=== PATIENT | male | born 1975 | race Asian ===

== ENCOUNTER 2021-04-21 07:42 | Day surgery (SDC) | payer OTHER ==
[2021-04-21 09:00] VITALS: BP 142/88
[2021-04-21 09:17] LABS: HEMATOCRIT 43.9 % (39.0-50.0); HEMOGLOBIN 14.6 g/dl (14.0-18.0); MEAN CELL VOLUME 84.6 fL CALC (80.0-100.0); MEAN CORPUSCULAR HGB 28.1 pG CALC (26.0-32.0); MEAN CORPUSCULAR HGB CONC 33.3 g/dL CAL (32.0-36.0); NEUT# 3.24 thou/uL (1.82-7.42); RED BLOOD COUNT 5.19 mill/uL (4.70-6.10); RED CELL DISTRI WIDTH 11.8 % (11.5-15.5)
[2021-04-21 09:30] LABS: ANION GAP 11 (6-22 (CALC)); BUN 15 mg/dL (9-20); BUN/CREATININE RATIO 18 (12-20 (CALC)); CARBON DIOXIDE 36 mmol/l (22-30); CHLORIDE 95 mmol/l (95-108); CREATININE 0.9 mg/dL (0.7-1.3); GFR > 60 ML/MIN (>=60 (CALC)); GFR FOR AFR.AMER. > 60 ML/MIN (>=60 (CALC)); SODIUM 137 mmol/l (137-146)
[2021-04-21 09:33] LABS: POTASSIUM 5.2 mmol/l (3.5-5.1)
[2021-04-21 09:35] VITALS: BP 100/63
[2021-04-21 10:38] LABS: ALBUMIN 4.4 g/dL (3.2-5.0); BILIRUBIN, TOTAL 0.4 mg/dL (0.0-1.4); TOTAL PROTEIN 7.2 g/dL (6.3-8.2)
[2021-04-21 11:08] VITALS: BP 85/39
[2021-04-21 20:26] VITALS: BP 115/70
[2021-04-21 22:54] VITALS: BP 141/87
[2021-04-22 04:16] VITALS: BP 120/74
[2021-04-22 04:20] VITALS: BP 120/74
[2021-04-22 05:34] LABS: ANION GAP 13 (6-22 (CALC)); BUN 14 mg/dL (9-20); BUN/CREATININE RATIO 19 (12-20 (CALC)); CHLORIDE 102 mmol/l (95-108); CREATININE 0.7 mg/dL (0.7-1.3); GFR > 60 ML/MIN (>=60 (CALC)); GFR FOR AFR.AMER. > 60 ML/MIN (>=60 (CALC)); POTASSIUM 4.3 mmol/l (3.5-5.1); SODIUM 135 mmol/l (137-146)
[2021-04-22 05:42] LABS: CARBON DIOXIDE 24 mmol/l (22-30)
[2021-04-22 07:41] VITALS: BP 118/71
[2021-04-22 11:46] VITALS: BP 117/70
== END 2021-04-22 15:15 | disposition home or self-care (01) | DRG 897 ==
LOC: ANR 07:42 → DETOX 07:42 → ICU 07:50 → DETOX 07:50 → ICU 09:29 → MS2 09:29 → DETOX 10:45 → MS2 04-22 15:15 → DETOX 04-22 15:15
PROVIDERS: ATTEND Anesthesiology
DX: F11.20 Opioid dependence, uncomplicated (principal)
CPT/HCPCS: J2060; J2354

== ENCOUNTER 2022-02-02 07:28 | Day surgery (SDC) | payer OTHER ==
[2022-02-02] VITALS (93 sets, daily range): BP systolic 84–139; BP diastolic 39–94
[~2022-02-02] VITALS: Ht 162.6 cm; Wt 75.0 kg
[2022-02-02 07:36] LABS: HEMATOCRIT 41.3 % (39.0-50.0); HEMOGLOBIN 13.4 g/dl (14.0-18.0); MEAN CELL VOLUME 88.2 fL CALC (80.0-100.0); MEAN CORPUSCULAR HGB 28.6 pG CALC (26.0-32.0); MEAN CORPUSCULAR HGB CONC 32.4 g/dL CAL (32.0-36.0); NEUT# 2.79 thou/uL (1.82-7.42); RED BLOOD COUNT 4.68 mill/uL (4.70-6.10); RED CELL DISTRI WIDTH 11.5 % (11.5-15.5)
[2022-02-02 07:44] LABS: ALBUMIN 3.9 g/dL (3.2-5.0); ALKALINE PHOSPHATASE 58 u/l (38-126); BILIRUBIN, TOTAL 0.3 mg/dL (0.0-1.4); BUN 12 mg/dL (9-20); BUN/CREATININE RATIO 13 (12-20 (CALC)); CHLORIDE 104 mmol/l (95-108); CREATININE 0.9 mg/dL (0.7-1.3); GFR > 60 ML/MIN (>=60 (CALC)); GFR FOR AFR.AMER. > 60 ML/MIN (>=60 (CALC)); POTASSIUM 4.3 mmol/l (3.5-5.1); SGOT/AST 25 u/l (17-59); SODIUM 141 mmol/l (137-146); TOTAL PROTEIN 6.2 g/dL (6.3-8.2)
[2022-02-02 07:51] LABS: ANION GAP 9 (6-22 (CALC)); CARBON DIOXIDE 32 mmol/l (22-30)
[2022-02-03 06:24] VITALS: BP 104/71
[2022-02-03 08:47] VITALS: BP 108/64
== END 2022-02-03 13:04 | disposition home or self-care (01) | DRG 897 ==
LOC: ANR 07:28 → MS2 07:30 → ANR 11:04
PROVIDERS: ATTEND Anesthesiology
DX: F11.20 Opioid dependence, uncomplicated (principal)
CPT/HCPCS: J2060; J2354